=== PATIENT | male | born 1980 | race Caucasian/White ===

== ENCOUNTER 2017-04-20 08:57 | Emergency (ER) | payer OTHER ==
[2017-04-20 09:50] VITALS: BP 105/69
[2017-04-20 14:45] LABS: Hematocrit 47 % (42-52); Hemoglobin 14.9 g/dl (14.0-18.0); Mean Corpuscular HGB Conc 32 g/dl (31-36); Mean Corpuscular Hemoglobin 29 pg (27-31); Mean Corpuscular Volume 92 fL (80-94); Mean Platelet Volume 8 um3 (7.4-10.4); Red Blood Count 5.12 10^6/ul (4.0-5.4); Red Cell Distribution Width 15 % (10.5-15); White Blood Count 22.7 10^3/ul (3.5-10.8)
[2017-04-20 14:46] LABS: Add Diff/Slide Review? Slide Review Added; Comments Flag Yes
[2017-04-20 15:21] LABS: Immature Granulocytes 3 % (0-9); Neutrophil % 84 % (38-83); RBC Morphology Normal (Normal); Reactive Lymph % 4 % (0-6)
--- NOTE | 2017-04-20 16:45 | UC ---
Eva Wilkins Edward, scribed for Dorothy Rich DO on 04/20/17 at 1033 . General HPI - HPI Summary HPI Summary: 37 y/o male presents to [facility] c/o chills and subjective fever last night at 01:00 , slightly relieved by Ibuprofen at the time. Associated sx: mild testicle pain and swollen (but decreased from before), increased frequency of urination, weakness in arms and legs, mild pain in lower back and in suprapubic region, and mild GROSS. Patient also c/o non-pruritic bites on both arms. The abd pain is rated 3/10, described as an aching pain. Patient is currently on Levaquin 500 mg PO DAILY (Day 4) for epididymitis. Denies cough, sore throat, ear ache, problems breathing, N/V/D, dysuria, and change in urine color. PMHx polycythemia , left megauretur, and epididymitis. - History of Current Complaint Chief Complaint: UCGeneralIllness Stated Complaint: FEVER Hx Obtained From: Patient Onset/Duration: Sudden Onset, Lasting Hours - This morning 01:00, Still Present Timing: Constant Onset Severity: Moderate Current Severity: Moderate Associated Signs & Symptoms: Positive: Abdominal Pain - Mild, Back Pain - Mild, Diaphoresis, Fever - subjective, Headache - Mild. Negative: Cough, Chest Pain, Dizziness, Diarrhea, Dysuria, Nausea, Syncope, SOB, Vomiting - Allergy/Home Medications Allergies/Adverse Reactions: Allergies Allergy/AdvReac Type Severity Reaction Status Date / Time No Known Allergies Allergy Verified 04/20/17 09:30 Home Medications: Home Medications Ibuprofen TAB* [Advil TAB*] 2 tab PO PRN 04/20/17 [History] Levofloxacin TAB* [Levaquin 500 Tab*] 500 mg PO DAILY 04/20/17 [History Confirmed 04/20/17] PMH/Surg Hx/FS Hx/Imm Hx - Additional Past Medical History Additional PMH: Positive: polycythemia, epididymitis, L megauretur Previously Healthy: No GI/ History: Other Other GI/ History: Diverticulosis, epididdymitis Neurological History: Migraine - Surgical History Surgical History: Yes Surgery Procedure, Year, and Place: HPV REMOVAL - Family History Known Family History: Positive: Cardiac Disease - grandfather ([place]), Hypertension - Mom, Other - hypotension (father); thyroid disease (mother) - Social History Occupation: Employed Full-time Lives: Alone Alcohol Use: Weekly Substance Use Type: None Smoking Status (MU): Heavy Every Day Tobacco Smoker Type: Cigarettes Amount Used/How Often: 6-10 CIG/DAY Cessation Counseling: Patient Advised to Stop - Immunization History Most Recent Influenza Vaccination: 06/2016 Most Recent Tetanus Shot: 05/13/14 Most Recent Pneumonia Vaccination: never Review of Systems Constitutional: Fever - subjective, Chills Skin: Negative Eyes: Negative ENT: Negative - No sore throat, eaer ache Respiratory: Negative - No SOB, no cough Cardiovascular: Negative - No CP Gastrointestinal: Other - No vomiting, diarrhea, nausea Genitourinary: Frequency - mild increased frequency, Other - Progressively decreasing testicle pain and swelling. No dysuria, hematuria Motor: Weakness - generalized malaised Neurovascular: Negative Musculoskeletal: Arthralgia - Mild back pain, Myalgia Neurological: Headache - Mild Psychological: Negative All Other Systems Reviewed And Are Negative: Yes Physical Exam Triage Information Reviewed: Yes Appearance: Well-Appearing, No Pain Distress, Well-Nourished Vital Signs: Initial Vital Signs Temp 98.5 F 04/20/17 09:32 Pulse 86 04/20/17 09:32 Resp 18 04/20/17 09:32 BP 105/69 04/20/17 09:32 Pulse Ox 98 04/20/17 09:32 Vital Signs Reviewed: Yes Eyes: Positive: Conjunctiva Clear. Negative: Discharge ENT: Positive: Hearing grossly normal. Negative: Muffled/hoarse voice Neck: Positive: Supple, Nontender Respiratory: Positive: Lungs clear, Normal breath sounds, No respiratory distress, No accessory muscle use Cardiovascular: Positive: RRR, No Murmur Abdomen Description: Positive: Nontender. Negative: Soft, CVA Tenderness (R), CVA Tenderness (L), Distended, Guarding, McBurney's Point Tenderness, Peritoneal Signs Bowel Sounds: Positive: Present Musculoskeletal Exam: Normal Neurological: Positive: Alert, Muscle Tone Normal, Other: - aox4, strength, sensation and reflexes intact bl, cn 2-12 intact, no cerebellar signs Psychological: Positive: Age Appropriate Behavior Skin Exam: Other - Warm, dry, normal color Skin: Positive: rashes - Resolving papular rash bilateral arms, Other - Tender 1 cm enlargement over epididymis. Per patient, it is getting smaller. Course/Dx - Course Course Of Treatment: The patient has been encouraged to quit smoking. Pt has anatomical anomaly of megaureter. Has noted slight increase in frequency of urine and had trace blood in his ua(again pt has had blood in semen on a couple of occassions this past couple of weeks. Given that pt is currently on levaquin , uti/pyelo seemed unlikely. If sx present outside of the context of epydiddymitis, clinical picture and epidemiology could also suggest lyme. I ordered cbc, blood cultures and urine microscopy. Microscopy because, I wanted to know by the end of the day if pt had uti. Unfortunately, the nurse who collected the specimen sent it to the lab in the wrong tube. Wanted to obtain blood cx on this well appearing man because he was reporting f/severe chills/ achy while on 5 days of a strong abx. Unfortunately, the nurse did not use the correct tube when obtaining a specimen. So, inspite of orders blood cx were not obtained. The cbc was done and I got the result at the end of shift when I went to check the microscopy results. [id number] with left shift. microscopy not available. Called patient, informed him of results and recommended that he go to ED immediately for further evaluation. Pt voiced understanding an stated that he would go to the ED right away. - Differential Dx - Multi-Symptom Differential Diagnoses: Sepsis, Urinary Tract Infection, Other - lyme dz Provider Diagnoses: lyme disease Discharge - Discharge Plan Condition: Stable Disposition: HOME Prescriptions: DOXYcycline CAP(*) [DOXYcycline 100MG CAP(*)] 100 mg PO BID #42 cap Patient Education Materials: Lyme Disease (ED), Epididymitis (ED) Referrals: Belem Amato MD [Primary Care Provider] - 1 Day (Follow up with your pcp tomorrow. Follow up sooner at the ED if symptoms worsen or new ones develop. If you experience vomiting, severe ABD pain, back pain, or obvious blood in the urine, please go to the ER immediately.) Additional Instructions: DOXYCYCLINE: Doxycycline (Vibramycin, Doryx) is an antibiotic of the tetracycline family. This type of drug is useful for infections of the respiratory tract and genital tract, and is sometimes used for intestinal infections. Unlike most tetracyclines, doxycycline can be taken with food. It is longer acting, and (usually) less prone to side effects than regular tetracycline. Tetracycline antibiotics can stain immature teeth and SHOULD NOT BE TAKEN BY CHILDREN, NURSING MOTHERS, OR WOMEN. Tetracyclines can make you more prone to sunburn. Abdominal cramping, nausea, and diarrhea are occasional side effects. Women may experience vaginal yeast infections. Call the doctor at once if you develop hives, itching, shortness of breath , or lightheadedness. DISCUSSED, DOXY ALSO INCREASES YOUR RISK OF SUNBURN. COVER UP WHEN YOU GO OUTSIDE. ANYTIME YOU TAKE AN ANTIBIOTIC, IT IS IMPORTANT TO REPLENISH THE BODY'D SUPPLY OF "GOOD BACTERIA." YOU CAN GET GOOD BACTERIA FROM HIGH QUALITY CULTURED FOODS SUCH LOCAL YOGURT, SOUR KRAUT, NELL KYUNG, NATURALLY FERMENTED PICKLES AND PROBIOTIC DRINKS. YOU CAN ALSO GET GOOD BACTERIA FROM A PROBIOTIC SUPPLEMENT. If you experience vomiting, severe ABD pain, back pain, or obvious blood in the urine, please go to the ER immediately. The documentation as recorded by the scribeEva Edward accurately reflects the service I personally performed and the decisions made by me, Dorothy Rich DO.
--- NOTE | 2017-04-22 08:02 | ED ---
Progress - Progress Note Progress Note: URINE CX (-). Course/Dx - Course Course Of Treatment: The patient has been encouraged to quit smoking. Pt has anatomical anomaly of megaureter. Has noted slight increase in frequency of urine and had trace blood in his ua(again pt has had blood in semen on a couple of occassions this past couple of weeks. Given that pt is currently on levaquin , uti/pyelo seemed unlikely. If sx present outside of the context of epydiddymitis, clinical picture and epidemiology could also suggest lyme. I ordered cbc, blood cultures and urine microscopy. Microscopy because, I wanted to know by the end of the day if pt had uti. Unfortunately, the nurse who collected the specimen sent it to the lab in the wrong tube. Wanted to obtain blood cx on this well appearing man because he was reporting f/severe chills/ achy while on 5 days of a strong abx. Unfortunately, the nurse did not use the correct tube when obtaining a specimen. So, inspite of orders blood cx were not obtained. The cbc was done and I got the result at the end of shift when I went to check the microscopy results. [id number] with left shift. microscopy not available. Called patient, informed him of results and recommended that he go to ED immediately for further evaluation. Pt voiced understanding an stated that he would go to the ED right away. - Diagnoses Provider Diagnoses: Fever
== END 2017-04-20 12:00 | disposition home or self-care (01) ==
LOC: UCEAST 08:57
DX: A69.20 Lyme disease, unspecified (principal); D75.1 Secondary polycythemia; N45.1 Epididymitis; N28.82 Megaloureter; Z72.0 Tobacco use
CPT/HCPCS: 36415; 81003; 85025; 87086; 99212; G0463

== ENCOUNTER 2017-04-20 15:51 | Emergency (ER) | payer OTHER ==
[2017-04-20 17:05] LABS: Urine Bacteria Absent (Absent); Urine Bilirubin Negative (Negative); Urine Glucose 2+(150 mg/dL) (Negative); Urine Nitrite Negative (Negative)
[2017-04-20 17:35] LABS: Hematocrit 45 % (42-52); Hemoglobin 14.5 g/dl (14.0-18.0); Mean Corpuscular HGB Conc 32 g/dl (31-36); Mean Corpuscular Hemoglobin 29 pg (27-31); Mean Corpuscular Volume 91 fL (80-94); Mean Platelet Volume 7 um3 (7.4-10.4); Red Blood Count 4.92 10^6/ul (4.0-5.4); Red Cell Distribution Width 15 % (10.5-15); White Blood Count 17.8 10^3/ul (3.5-10.8)
[2017-04-20 17:45] LABS: Add Diff/Slide Review? Slide Review Added; Comments Flag Yes
[2017-04-20 17:51] LABS: Albumin 3.8 g/dL (3.2-5.2); C Reactive Protein 65.46 mg/L (< 5.00); EGFR African American 108.7 (>60); EGFR Non-African American 84.5 (>60); Globulin 2.6 g/dL (2-4); Total Bilirubin 0.5 mg/dL (0.2-1.0); Total Protein 6.4 g/dL (6.4-8.9)
[2017-04-20 17:52] LABS: Troponin I 0.01 ng/mL (<0.04)
--- NOTE | 2017-04-20 18:33 | RAD ---
Indication: Fever. Comparison is made with previous exam dated July 10, 2016. 2 views of the chest including dual energy PA views demonstrate no mediastinal shift. Heart is of normal size and configuration. Lung ugarte demonstrate no pleural fluid, pneumonia or pneumothorax. IMPRESSION: No active cardiopulmonary disease is noted.
[2017-04-20 18:58] VITALS: BP 111/78
--- NOTE | 2017-04-20 22:17 | ED ---
Saravanan Wilkins Alok, scribed for Markel Alcala MD on 04/20/17 at 1717 . HPI Febrile Illness - HPI Summary HPI Summary: 37M presents to the ED sent here from [facility] following an episode of fever/chills last night. [facility] reports elevated WBC. Pt states that one week ago experiencing left testicle pain radiating to the LLQ as well as mild testicle swelling during a trip in [facility]. Pt states his testicle pain worsened while standing and was better at rest. Pt was placed on antibiotics for the last 5 days which reduced his testicle pain and swelling. Pt currently notes generalized myaliga, extremity weakness, and slight testicle discomfort. Pt also notes increased urinary frequency and a new onset of small macular spots on his arms. Pt currently presents with a temperature of 99 F and pt states he took 2 ibuprofen last night at 0300. Pt denies dysuria or abd pain. PMHx includes h/o diverticulitis x2. - History of Current Complaint Chief Complaint: EDFever Time Seen by Provider: 04/20/17 16:43 Hx Obtained From: Patient Onset/Duration: Started Days Ago, Atraumatic, Still Present Timing: Intermittent, Lasting Hours Initial Severity: Moderate Current Severity: Moderate Pain Intensity: 3 Pain Scale Used: 0-10 Numeric Aggravating Factors: Other: - standing aggravates testicular pain Alleviating Factors: OTC Medicine - ibuprofen Associated Signs and Symptoms: Chills, Myalgia, Weakness - Additional Pertinent History Primary Care Physician: KOFFI - Allergy/Home Medications Allergies/Adverse Reactions: Allergies Allergy/AdvReac Type Severity Reaction Status Date / Time No Known Allergies Allergy Verified 04/20/17 15:54 PMH/Surg Hx/FS Hx/Imm Hx Endocrine/Hematology History: Reports: Hx Blood Disorders - INCREASED RBC: Denies: Hx Diabetes Cardiovascular History: Denies: Hx Hypertension, Hx Pacemaker/ICD GI History: Reports: Hx Diverticulosis Denies: Hx Cirrhosis History: Denies: Hx Dialysis, Hx Renal Disease Sensory History: Reports: Hx Contacts or Glasses Denies: Hx Hearing Aid Opthamlomology History: Reports: Hx Contacts or Glasses Neurological History: Reports: Hx Migraine Psychiatric History: Denies: Hx Panic Disorder - Surgical History Surgery Procedure, Year, and Place: HPV REMOVAL Infectious Disease History: No Infectious Disease History: Denies: Hx Hepatitis, Traveled Outside the [place] in Last 30 Days - Family History Known Family History: Positive: Cardiac Disease - grandfather ([place]), Other - hypotension (father); thyroid disease (mother) - Social History Occupation: Employed Full-time Alcohol Use: Weekly Substance Use Type: Reports: Marijuana Substance Use Comment - Amount & Last Used: occasionally Hx Tobacco Use: Yes Smoking Status (MU): Light Every Day Tobacco Smoker Type: Cigarettes Amount Used/How Often: 6-10 CIG/DAY Review of Systems Positive: Fever, Chills Negative: Abdominal Pain Genitourinary: Other - left testicular pain and swelling Positive: frequency - urinary. Negative: dysuria Positive: Myalgia Positive: Rash Positive: Weakness All Other Systems Reviewed And Are Negative: Yes Physical Exam Triage Information Reviewed: Yes Vital Signs On Initial Exam: Initial Vitals Temp Pulse Resp BP Pulse Ox 99 F 110 20 132/81 97 04/20/17 15:56 04/20/17 15:56 04/20/17 15:56 04/20/17 15:56 04/20/17 15:56 Vital Signs Reviewed: Yes Appearance: Positive: Well-Appearing, No Pain Distress Skin: Positive: Warm, Skin Color Reflects Adequate Perfusion, Dry, Other - Few small macular spots on arms Head/Face: Positive: Normal Head/Face Inspection Eyes: Positive: Normal ENT: Positive: Normal ENT inspection Neck: Positive: Supple, Nontender Respiratory/Lung Sounds: Positive: Clear to Auscultation, Breath Sounds Present Cardiovascular: Positive: RRR Abdomen Description: Positive: Nontender, Soft Bowel Sounds: Positive: Present Male Genital Exam: Positive: testicular tenderness (L) Musculoskeletal: Positive: Normal Neurological: Positive: Normal Psychiatric: Positive: Normal, Affect/Mood Appropriate - [place] Coma Scale Coma Scale Total: 15 Diagnostics - Vital Signs Vital Signs Temp Pulse Resp BP Pulse Ox 04/20/17 16:52 99.5 F 91 16 132/88 97 04/20/17 16:49 91 96 04/20/17 16:47 132/88 04/20/17 15:56 99 F 110 20 132/81 97 - Laboratory Lab Results: Lab Results 04/20/17 04/20/17 04/20/17 Range/Units 16:30 17:25 17:25 WBC 17.8 H (3.5-10.8) 10^3/ul RBC 4.92 (4.0-5.4) 10^6/ul Hgb 14.5 (14.0-18.0) g/dl Hct 45 (42-52) % MCV 91 (80-94) fL MCH 29 (27-31) pg MCHC 32 (31-36) g/dl RDW 15 (10.5-15) % Plt Count 232 (150-450) 10^3/ul MPV 7 L (7.4-10.4) um3 Neut % (Auto) 89.4 H (38-83) % Lymph % (Auto) 4.2 L (25-47) % [place] % (Auto) 5.8 (1-9) % Eos % (Auto) 0.1 (0-6) % Baso % (Auto) 0.5 (0-2) % Absolute Neuts (auto) 16.0 H (1.5-7.7) 10^3/ul Absolute Lymphs (auto) 0.7 L (1.0-4.8) 10^3/ul Absolute Monos (auto) 1.0 H (0-0.8) 10^3/ul Absolute Eos (auto) 0 (0-0.6) 10^3/ul Absolute Basos (auto) 0.1 (0-0.2) 10^3/ul Absolute Nucleated RBC 0.01 10^3/ul Nucleated RBC % 0.1 Sodium 136 (133-145) mmol/L Potassium 4.0 (3.5-5.0) mmol/L Chloride 105 (101-111) mmol/L Carbon Dioxide 26 (22-32) mmol/L Anion Gap 5 (2-11) mmol/L BUN 15 (6-24) mg/dL Creatinine 1.00 (0.67-1.17) mg/dL Est GFR ( Amer) 108.7 (>60) Est GFR (Non-Af Amer) 84.5 (>60) BUN/Creatinine Ratio 15.0 (8-20) Glucose 147 H (70-100) mg/dL Lactic Acid (0.5-2.0) mmol/L Calcium 9.0 (8.6-10.3) mg/dL Total Bilirubin 0.50 (0.2-1.0) mg/dL AST 17 (13-39) U/L ALT 22 (7-52) U/L Alkaline Phosphatase 73 (34-104) U/L Troponin I 0.01 (<0.04) ng/mL C-Reactive Protein 65.46 H (< 5.00) mg/L Total Protein 6.4 (6.4-8.9) g/dL Albumin 3.8 (3.2-5.2) g/dL Globulin 2.6 (2-4) g/dL Albumin/Globulin Ratio 1.5 (1-3) Urine Color Yellow Urine Appearance Clear Urine pH 6.0 (5-9) Ur Specific [place] 1.019 (1.010-1.030) Urine Protein Negative (Negative) Urine Ketones Negative (Negative) Urine Blood 1+ H (Negative) Urine Nitrate Negative (Negative) Urine Bilirubin Negative (Negative) Urine Urobilinogen Negative (Negative) Ur Leukocyte Esterase Trace H (Negative) Urine WBC (Auto) Trace(0-5/hpf) (Absent) Urine RBC (Auto) 2+(6-10/hpf) H (Absent) Urine Bacteria Absent (Absent) Urine Glucose 2+(150 mg/dl) H (Negative) 04/20/ Range/Units 17:25 WBC (3.5-10.8) 10^3/ul RBC (4.0-5.4) 10^6/ul Hgb (14.0-18.0) g/dl Hct (42-52) % MCV (80-94) fL MCH (27-31) pg MCHC (31-36) g/dl RDW (10.5-15) % Plt Count (150-450) 10^3/ul MPV (7.4-10.4) um3 Neut % (Auto) (38-83) % Lymph % (Auto) (25-47) % [place] % (Auto) (1-9) % Eos % (Auto) (0-6) % Baso % (Auto) (0-2) % Absolute Neuts (auto) (1.5-7.7) 10^3/ul Absolute Lymphs (auto) (1.0-4.8) 10^3/ul Absolute Monos (auto) (0-0.8) 10^3/ul Absolute Eos (auto) (0-0.6) 10^3/ul Absolute Basos (auto) (0-0.2) 10^3/ul Absolute Nucleated RBC 10^3/ul Nucleated RBC % Sodium (133-145) mmol/L Potassium (3.5-5.0) mmol/L Chloride (101-111) mmol/L Carbon Dioxide (22-32) mmol/L Anion Gap (2-11) mmol/L BUN (6-24) mg/dL Creatinine (0.67-1.17) mg/dL Est GFR ( Amer) (>60) Est GFR (Non-Af Amer) (>60) BUN/Creatinine Ratio (8-20) Glucose (70-100) mg/dL Lactic Acid 1.4 (0.5-2.0) mmol/L Calcium (8.6-10.3) mg/dL Total Bilirubin (0.2-1.0) mg/dL AST (13-39) U/L ALT (7-52) U/L Alkaline Phosphatase (34-104) U/L Troponin I (<0.04) ng/mL C-Reactive Protein (< 5.00) mg/L Total Protein (6.4-8.9) g/dL Albumin (3.2-5.2) g/dL Globulin (2-4) g/dL Albumin/Globulin Ratio (1-3) Urine Color Urine Appearance Urine pH (5-9) Ur Specific [place] (1.010-1.030) Urine Protein (Negative) Urine Ketones (Negative) Urine Blood (Negative) Urine Nitrate (Negative) Urine Bilirubin (Negative) Urine Urobilinogen (Negative) Ur Leukocyte Esterase (Negative) Urine WBC (Auto) (Absent) Urine RBC (Auto) (Absent) Urine Bacteria (Absent) Urine Glucose (Negative) Result Diagrams: 04/20/17 17:25 04/20/17 17:25 Lab Statement: Any lab studies that have been ordered have been reviewed, and results considered in the medical decision making process. - Radiology CXR Xray Interpretation: Positive (See Comments) - IMPRESSION: NO ACTIVE CARDIOPULMONARY DIESASE IS NOTED. Radiology Interpretation Completed By: Radiologist Course/Dx - Course Course Of Treatment: Mr. Padilla was sent in with the concern that his WBC's that were drawn this AM were elevated at 22.5. He went to [facility] because of diffuse myalgias and arthralgias. He is being treated with levaquin for epididymitis and has improved a lot but that hurts a bit more today also. His WBC's here were 17 and he is not toxic or febrile. He was given Doxy this AM which he has not taken and I encouraged him to do so. - Diagnoses Provider Diagnoses: Leukocytosis Discharge - Discharge Plan Condition: Stable Disposition: HOME Patient Education Materials: Fever in Adults (ED) Referrals: Belem Amato MD [Primary Care Provider] - Additional Instructions: Please take your medications and follow up with Dr. Amato in 2-3 days if symptoms do not improve. The documentation as recorded by the Saravanan amador Alok accurately reflects the service I personally performed and the decisions made by me, Markel Alcala MD.
[2017-04-23 01:28] LABS: B. miyamotoi PCR, B Negative (Negative); Babesia divergens/MO-1 Negative (Negative); Babesia ducani Negative (Negative); Ehrlichia ewingii/canis Negative (Negative)
== END 2017-04-20 18:58 | disposition home or self-care (01) ==
LOC: ED 15:51
DX: D72.829 Elevated white blood cell count, unspecified (principal); R53.1 Weakness; M79.1 Myalgia; F17.210 Nicotine dependence, cigarettes, uncomplicated
CPT/HCPCS: 36415; 71020; 80053; 81003; 81015; 83605; 84484; 85025; 86140; 86618; 87040; 87798; 99282

== ENCOUNTER 2017-06-10 08:07 | Emergency (ER) | payer OTHER ==
[2017-06-10 08:41] VITALS: BP 117/82
[2017-06-10] MEDS ORDERED: Ibuprofen TAB* 400 MG PO ONE (09:15)
--- NOTE | 2017-06-10 09:26 | UC ---
Complaint Male HPI - HPI Summary HPI Summary: Patient presents with a past medical history of polycythemia. He presents today with complaints of right flank pain that radiates around to the side of his abdomen. He states the pain began yesterday, and he noted decreased urinary flow. He states that he drank alot of water last night and and was up all niht urinating but feels like his urinary flow has decreased. He denies fever, chills , nausea or vomiting, hematuria, or abnormal penile discharge. - History of Current Complaint Chief Complaint: UCGU Stated Complaint: URINARY ISSUE Time Seen by Provider: 06/10/17 09:09 Hx Obtained From: Patient Onset/Duration: Gradual Onset Timing: Intermittent, Lasting Days Severity Initially: Moderate Severity Currently: Moderate Location: Flank Character: Sharp Aggravating Factor(s): Voiding, Straining Associated Signs And Symptoms: Positive: Back Pain - Allergies/Home Medications Allergies/Adverse Reactions: Allergies Allergy/AdvReac Type Severity Reaction Status Date / Time No Known Allergies Allergy Verified 06/10/17 08:41 Home Medications: Home Medications Cholecalciferol [Vitamin D] 1,000 units PO DAILY 06/10/17 [History Confirmed 02/19] PMH/Surg Hx/FS Hx/Imm Hx Previously Healthy: Yes GI/ History: Other - megaureter right. Other GI/ History: metaureter right - Surgical History Surgical History: None Surgery Procedure, Year, and Place: HPV REMOVAL - Family History Known Family History: Positive: Cardiac Disease - grandfather ([place]), Hypertension - Mom, Other - hypotension (father); thyroid disease (mother) - Social History Occupation: Employed Full-time Lives: Alone Alcohol Use: Weekly Substance Use Type: Marijuana Substance Use Comment - Amount & Last Used: occasionally Smoking Status (MU): Light Every Day Tobacco Smoker Type: Cigarettes Amount Used/How Often: 6-10 CIG/DAY - Immunization History Most Recent Influenza Vaccination: 06/2016 Most Recent Tetanus Shot: 05/13/14 Most Recent Pneumonia Vaccination: never Review of Systems Gastrointestinal: Abdominal Pain Genitourinary: Frequency, Urgency - decreased urinary flow All Other Systems Reviewed And Are Negative: Yes Physical Exam Triage Information Reviewed: Yes Appearance: Well-Appearing Vital Signs: Initial Vital Signs Temp 98.3 F 06/10/17 08:36 Pulse 91 06/10/17 08:36 Resp 16 06/10/17 08:36 BP 117/82 06/10/17 08:36 Pulse Ox 99 06/10/17 08:36 Vital Signs Reviewed: Yes Eye Exam: Normal ENT Exam: Normal Neck exam: Normal Respiratory Exam: Normal Cardiovascular Exam: Normal Abdomen Description: Positive: CVA Tenderness (L) Musculoskeletal Exam: Normal Skin Exam: Normal Complaint Male Course/Dx - Course Course Of Treatment: Patient presented with past medical history of polycythemia and right megaureter. He reports two days of worsening right flank pain, and decreased urinary flow. Ct scan was obtained finding were consistent with pyelonephritis, and less likely malignancy. The patient was given a copy of the report. He was rx cipro 500 mg bid x 10 days, and told to follow up in the er if his symtpoms worsen or persist. He was also referred to a urologist . - Differential Dx/Diagnosis Differential Diagnosis/HQI/PQRI: Pyelonephritis Provider Diagnoses: pyelonephritis Discharge - Discharge Plan Condition: Stable Disposition: HOME Prescriptions: Ciprofloxacin TAB* [Cipro 500 MG TAB*] 500 mg PO BID #20 tab Patient Education Materials: Urinary Tract Infection in Men (ED), Flank Pain ( ED) Referrals: Belem Amato MD [Primary Care Provider] - Vicente Kwong MD [Medical Doctor] - Additional Instructions: I recommend you follow up with a Urologist regarding the finding of megaureter, and recent kidney infection within two days if your symptoms persist.
--- NOTE | 2017-06-10 10:01 | RAD ---
INDICATION: Left flank abdominal pain. COMPARISON: Comparison is made with a prior CT of the abdomen and pelvis from June 15, 2016. TECHNIQUE: A CT scan of the abdomen and pelvis was performed without intravenous or oral contrast. Contiguous axial sections were obtained from the lung bases through the symphysis pubis. Images were reconstructed in the coronal and sagittal planes. FINDINGS: The lung bases are clear. No pleural effusion is present. The liver and spleen are normal in size. There is a small hypodense lesion present within the left hepatic lobe measuring up to 1.3 cm in size which is unchanged most consistent with a cyst. No calcified gallstones are seen. The pancreas appears to be within normal limits. The kidneys and adrenal glands appear normal in size. No renal, ureteral or bladder calculi are seen. There is mild dilatation of the left renal calyces and moderate distention of the left ureter which is unchanged from the prior study. There is mild stranding adjacent to the left ureter and mild thickening of the left ureteral wall. The aorta is normal in caliber without significant calcific plaque. No significant enlarged retroperitoneal lymph nodes are seen. The stomach, small and large bowel appear nondistended. The appendix is within normal limits. There is moderate descending and sigmoid diverticulosis without evidence for diverticulitis. There is a 1.8 x 0.8 cm calcific density present in the distal descending colon possibly representing a nondigested pill or vitamin versus a foreign body. Recommend clinical correlation. No free intraperitoneal air or fluid is seen. No significant focal osseous abnormality is seen. IMPRESSION: 1. DILATATION OF THE LEFT URETER, UNCHANGED SUGGESTIVE OF A PRIMARY MEGAURETER. IN ADDITION THERE IS THICKENING OF THE WALL OF THE URETER AND MILD STRANDING WHICH ARE NONSPECIFIC FINDINGS SUGGESTIVE OF PYELONEPHRITIS LESS LIKELY A MALIGNANT PROCESS. RECOMMEND CLINICAL CORRELATION. 2. CALCIFIC DENSITY IN THE DISTAL DESCENDING COLON MOST CONSISTENT WITH AN UNDIGESTED PILL OR VITAMIN OR ALTERNATIVELY A FOREIGN BODY. RECOMMEND CLINICAL CORRELATION.
--- NOTE | 2017-06-12 11:59 | UC ---
Progress - Progress Note Progress Note: e coli; on Cipro. Yves Allen MD
== END 2017-06-10 10:17 | disposition home or self-care (01) ==
LOC: UCEAST 08:07
DX: N12 Tubulo-interstitial nephritis, not specified as acute or chronic (principal); B96.20 Unspecified Escherichia coli [E. coli] as the cause of diseases classified elsewhere; F12.90 Cannabis use, unspecified, uncomplicated; F17.210 Nicotine dependence, cigarettes, uncomplicated
CPT/HCPCS: 74176; 81003; 87077; 87086; 87186; 99212; A9270-GY; G0463

== ENCOUNTER 2017-07-23 12:03 | Day surgery (SDC) | payer OTHER ==
--- NOTE | 2017-07-18 08:34 | HP ---
CC: Dr. Belem Amato; Dr. Nehemias Harris * DATE OF ADMISSION: 07/23/17 AGE: 37 years, male. ADMITTING DIAGNOSES: 1. Left hydronephrosis. 2. Left megaureter. PLANNED PROCEDURE: Left retrograde, left ureteroscopy, possible balloon dilatation, and left stent insertion. HISTORY OF PRESENT ILLNESS: Hamilton Padilla is a 37-year-old gentleman who's had a few episodes of urinary tract infections. He was diagnosed with left megaureter while in [facility] several years ago, and recently had another episode of flank pain and was noted to have a persistently dilated left ureter. In addition, on the CT scan of 06/10/17, there was noted to be thickening of the wall of the ureter and mild stranding which likely is related to inflammation. 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 PAST MEDICAL HISTORY: Significant for polycythemia and history of diverticulitis, history of restless leg syndrome, and history of migraines. PAST SURGICAL HISTORY: Unremarkable. MEDICATIONS ON ADMISSION: 1. Truvada 200-300 one tablet oral daily for HIV prophylaxis. 2. Cialis prn. 3. Cholecalciferol. ALLERGIES: No known drug allergies. PHYSICAL EXAMINATION GENERAL: Reveals a pleasant, healthy-appearing, young gentleman. VITAL SIGNS: Blood pressure is 110/68, pulse 77 per minute regular, temperature 97.7, oxygen saturation 98%. LUNGS: Clear bilaterally. CARDIOVASCULAR: Regular rate and rhythm. S1 and S2. ABDOMEN: Soft without masses. 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 PLANNED PROCEDURE: Left retrograde, left uteroscopy, possible balloon dilatation, and left stent insertion. [id number]/[facility] #: [id number] [facility]
[~2017-07-23 12:03] MED LIST: Buffered Lidocaine 0.9% SYRIN* 5 ML/SYR SYRINGE INTRADERM ONE; Sodium Citrate/Citric Acid* 15 ML UDC PO ONE
[2017-07-23] MEDS ORDERED: Buffered Lidocaine 0.9% SYRIN* 5 ML/SYR SYRINGE ONE (12:27)
[2017-07-23] MEDS ORDERED: Sodium Citrate/Citric Acid* 15 ML UDC ONE (12:27)
[2017-07-23] MEDS ORDERED: cefTRIAXone(*) 2 GM ADDV.VIAL IVPB ONE (12:27)
[2017-07-23] MEDS ORDERED: Iohexol 180 (CONTRAST) 10 ML SDV IV ONE ×3 (12:48→13:38)
[2017-07-23] MEDS ORDERED: fentaNYL* 50 MCG/ML 2 ML VIAL (100 MCG VIAL) ONE ×2 (13:01→14:31)
[2017-07-23] MEDS ORDERED: Lidocaine 2% PF * 5 ML VIAL ONE (13:02)
[2017-07-23] MEDS ORDERED: Propofol* 10 MG/ML 20 ML BTL IV PUSH ONE (13:02)
[2017-07-23] MEDS ORDERED: Midazolam* 1 MG/ML 2 ML VIAL (2 MG) ONE (13:02)
[2017-07-23] MEDS ORDERED: fentaNYL* 50 MCG/ML 2 ML VIAL (100 MCG VIAL) IV PRN (14:01)
[2017-07-23] MEDS ORDERED: Ondansetron INJ* 2 MG/ML VIAL IV PRN (14:01)
[2017-07-23] MEDS ORDERED: oxyCODONE/Acetamin 5/325 MG* TAB ONE (14:31)
[2017-07-23] MEDS ORDERED: Tamsulosin CAP* 0.4 MG ONE (14:32)
[2017-07-23 16:00] VITALS: BP 115/74
--- NOTE | 2017-07-23 16:10 | RAD ---
CPT II Codes: 6045F Indication: Left stent insertion. Fluoroscopic services provided for left ureteral stent placement. Left hydronephrosis is noted. 10 spot images demonstrates placement of a left ureteral stent. Approximately 117.8 seconds of fluoroscopy time was used. IMPRESSION: Left ureteral stent placement.
--- NOTE | 2017-07-24 03:12 | OP ---
CC: Belem Amato MD * DATE OF OPERATION: 07/23/17 - [facility] DATE OF : 82 SURGEON: Chad Dubon MD ANESTHESIOLOGIST: Dr. Rodriguez. ANESTHESIA: General. PRE-OP DIAGNOSES: 1. Left hydronephrosis and hydroureter. 2. Congenital left ureterovesical junction obstruction. POST-OP DIAGNOSES: 1. Left hydronephrosis and hydroureter. 2. Congenital left ureterovesical junction obstruction. OPERATIVE PROCEDURE: Cystoscopy, left retrograde pyelogram, left ureteroscopy, left ureteral balloon dilatation, and left stent insertion. INDICATIONS: Hamilton Padilla is a 37-year-old gentleman who has a longstanding history of recurrent infections and had been diagnosed with megaureter on the left side many years ago. COMPLICATIONS: None. STENT USED: A 7-Latvian 28-cm silicone stent, left ureter. OPERATIVE FINDINGS: 1. Normal-appearing bladder. 2. Left hydronephrosis and left hydroureter all the way down to urinary bladder with narrowing at the ureterovesical junction. POSTOPERATIVE CONDITION: Stable. DESCRIPTION OF PROCEDURE: After induction of general anesthesia, the patient was placed in dorsal lithotomy position. Sequential compression devices were in place and functioning. Initial cystoscopy revealed a normal-appearing urethra and a normal-appearing bladder. The right and left ureteral orifices were normal in position and configuration. A guidewire was introduced into the left ureter. Retrograde pyelogram revealed left hydronephrosis with a markedly dilated ureter all the way down to the urinary bladder. A 6-Latvian semi-rigid ureteroscope was introduced and advanced under direct vision. There was mild narrowing at the ureterovesical junction and the remainder of the ureter was significantly dilated with no evidence of any calculi or lesions within the ureter. Once the ureteroscopy was completed, balloon dilatation of the last 5- 6 cm of the distal left ureter were successfully carried out. Next, a 7-Latvian 28-cm silicone stent was introduced and positioned under fluoroscopy with good proximal and distal positioning obtained. The patient tolerated the procedure satisfactorily and was transferred back to the recovery area in stable condition. [id number]/[facility] #: [id number] MTDD
== END 2017-07-23 16:15 | disposition home or self-care (01) ==
LOC: OR 12:03
PROVIDERS: ATTEND Urology
DX: N13.1 Hydronephrosis with ureteral stricture, not elsewhere classified (principal); D75.1 Secondary polycythemia; F17.200 Nicotine dependence, unspecified, uncomplicated; Z68.32 Body mass index [BMI] 32.0-32.9, adult; Z79.899 Other long term (current) drug therapy; G25.81 Restless legs syndrome; G43.909 Migraine, unspecified, not intractable, without status migrainosus
CPT/HCPCS: 74420; A9270-GY; C1876; J0696; J1580; J2250; J2704; J3010

== ENCOUNTER 2019-09-07 11:27 | Emergency (ER) | payer OTHER ==
[2019-09-07 12:16] VITALS: BP 130/84
[2019-09-07] MEDS ORDERED: cefTRIAXone VIAL(*) 1,000 MG VIAL IM ONE (14:07)
[2019-09-07] MEDS ORDERED: Lidocaine 1% MPF ** 5 ML VIAL IM ONE (14:07)
--- NOTE | 2019-09-07 22:11 | UC ---
Upper Extremity HPI - HPI Summary HPI Summary: Patient is a 39yo male presenting with c/o "possible infected L elbow x1 day. Patient states that he has a dry patch of skin on his L elbow 1 week ago that cracked and bled. Patient states he did not think anything of it and the crack healed. States that yesterday the elbow began to become red, painful, and swollen and has gradually worsened since yesterday. Notes pain with flexion and extension of elbow. Denies injury or trauma. Denies drainage. Denies fever and chills. Denies n/v. Notes applying ice and taking ibuprofen without relief. Denies anything like this in the past. Denies h/o of MRSA infections. - History of Current Complaint Chief Complaint: Nan Stated Complaint: THINKS ELBOW IS INFECTED Hx Obtained From: Patient Onset/Duration: Gradual Onset, Lasting Days Severity Currently: Moderate Pain Intensity: 0 - Allergies/Home Medications Allergies/Adverse Reactions: Allergies Allergy/AdvReac Type Severity Reaction Status Date / Time melatonin Allergy See Comment Verified 11/08/18 07:21 PMH/Surg Hx/FS Hx/Imm Hx Previously Healthy: Yes GI/ History: Diverticulitis - Surgical History Surgical History: Yes Surgery Procedure, Year, and Place: HPV REMOVAL 11/2016 - Family History Known Family History: Positive: Cardiac Disease - grandfather ([place]), Hypertension - Mom, Other - hypotension (father); thyroid disease (mother) - Social History Alcohol Use: Occasionally Substance Use Type: None Substance Use Comment - Amount & Last Used: occasionally Smoking Status (MU): Light Every Day Tobacco Smoker Type: Cigarettes Amount Used/How Often: 5-8sig/day - Immunization History Most Recent Influenza Vaccination: 06/2016 Most Recent Tetanus Shot: 05/13/14 Most Recent Pneumonia Vaccination: never Review of Systems All Other Systems Reviewed And Are Negative: Yes Constitutional: Positive: Negative. Negative: Fever, Chills Skin: Positive: Other - erythema and warmth over L elbow Cardiovascular: Positive: Negative Gastrointestinal: Positive: Negative. Negative: Vomiting, Nausea Neurovascular: Positive: Negative. Negative: Decreased Sensation Musculoskeletal: Positive: Arthralgia - L elbow, Decreased ROM - L elbow extension d/t pain, Edema - L elbow Neurological: Negative: Paresthesia, Numbness Physical Exam Triage Information Reviewed: Yes Appearance: Well-Appearing, No Pain Distress, Well-Nourished Vital Signs: Initial Vital Signs Temp 98.5 F 09/07/19 12:11 Pulse 82 09/07/19 12:11 Resp 16 09/07/19 12:11 BP 130/84 09/07/19 12:11 Pulse Ox 99 09/07/19 12:11 Vital Signs Reviewed: Yes Eyes: Positive: Conjunctiva Clear ENT: Positive: Hearing grossly normal Neck: Positive: Supple Respiratory Exam: Normal Respiratory: Positive: Lungs clear, Normal breath sounds, No respiratory distress Cardiovascular Exam: Normal Cardiovascular: Positive: RRR, Pulses Normal - strong radial pulses, Brisk Capillary Refill. Negative: Tachycardia Musculoskeletal: Positive: Strength Intact, ROM Limited @ - L elbow extension and flexion d/t pain, Edema @ - L elbow, Other: - L elbow fluctuant with overlying erythema and warmth Neurological Exam: Other - sensation grossly intact Neurological: Positive: Alert Psychological: Positive: Normal Response To Family Skin: Positive: Other - scabbed, nonbleeding, nondraining lesion noted over L elbow Upper Extremity Course/Dx - Course Course Of Treatment: Discussed concern for cellulitis vs infective bursitis with patient. I discussed the patient with TIAN Manjarrez in ortho who spoke with Dr. Arreola about the patient. The patient received a shot of rocephin while waiting for a call back. Dr. Arreola agreed to see the patient in his office immediately after he leaves the urgent care. I prescribed patient with Keflex and instructed to follow up first with Dr. Arreola. Patient agreed to go immediately for further evaluation. Patient VS normal and in no pain distress upon departure. - Differential Dx/Diagnosis Differential Diagnosis/HQI/PQRI: Septic Arthritis, Other - infective bursitis Provider Diagnosis: Cellulitis of left elbow Discharge ED - Sign-Out/Discharge Documenting (check all that apply): Patient Departure All imaging exams completed and their final reports reviewed: No Studies - Discharge Plan Condition: Stable Disposition: HOME Prescriptions: Cephalexin CAP* [Keflex CAP*] 500 mg PO TID #30 cap Referrals: Ty Arreola MD [Medical Doctor] - As Soon As Possible Additional Instructions: You received a shot of rocephin here and provided with a prescription for Keflex. It is recommended that you go straight to Dr. Arreola's office from here for further evaluation. - Billing Disposition and Condition Condition: STABLE Disposition: Home
== END 2019-09-07 14:35 | disposition home or self-care (01) ==
LOC: UCEAST 11:27
DX: L03.114 Cellulitis of left upper limb (principal); F17.210 Nicotine dependence, cigarettes, uncomplicated; Z88.8 Allergy status to other drugs, medicaments and biological substances
CPT/HCPCS: 96372; 99212; G0463; J0696

== ENCOUNTER 2021-03-03 07:38 | Inpatient (IN) ==
[2021-03-03 08:57] LABS: Hematocrit 46 % (42-52); Hemoglobin 15.5 g/dL (14.0-18.0); Mean Corpuscular HGB Conc 34 g/dL (31-36); Mean Corpuscular Hemoglobin 32 pg (27-31); Mean Corpuscular Volume 93 fL (80-94); Mean Platelet Volume 7.3 fL (7.4-10.4); Platelet Count 211 10^3/uL (150-450); Red Blood Count 4.88 10^6 /uL (4.18-5.48); Red Cell Distribution Width 16 % (10-15); White Blood Count 15.3 10^3/uL (3.5-10.8)
[2021-03-03 08:58] LABS: ABS Lymphocytes 1.9 10^3/ul (1.0-4.8); ABS Monocytes 1.8 10^3/ul (0-0.8); ABS Neutrophils 11.6 10^3/ul (1.5-7.7); Eosinophil % 0.1 %; Lymphocyte % 12.4 %
[2021-03-03 08:59] LABS: Urine Appearance Clear; Urine Bilirubin Negative (Negative); Urine Blood 1+ (Negative); Urine Color Yellow; Urine Glucose Negative (Negative); Urine Ketones Negative (Negative); Urine Nitrite Negative (Negative); Urine Protein Negative (Negative); Urine Urobilinogen Negative (Negative)
[2021-03-03 09:11] LABS: Urine Bacteria Absent (Absent); Urine Red Blood Cell 2+(6-10/hpf) (Absent); Urine White Blood Cell 1+(6-10/hpf) (Absent)
[2021-03-03 09:12] LABS: Albumin 3.8 g/dL (3.2-5.2); Albumin/Globulin Ratio 1.5 (1-3); C Reactive Protein 102.02 mg/L (<8.01); EGFR African American 111.7 (>60); EGFR Non-African American 92.3 (>60); Globulin 2.5 g/dL (2-4); Potassium 4.1 mmol/L (3.5-5.0); Total Bilirubin 0.8 mg/dL (0.2-1.0); Total Protein 6.3 g/dL (6.4-8.9)
[2021-03-03] MEDS ORDERED: Iohexol 300 (CONTRAST) 10 ML SDV IV ONE (10:05)
[2021-03-03] MEDS ORDERED: Piperacillin/Tazobac ADVAN 3.375 GM in NS 0.9% 100 ml BAG 100 ML IV ONE ×2 (10:48→17:15)
[2021-03-03] MEDS: Morphine 4 MG/ML VIAL (1 ml) IV ONE ×2 (12:43→12:50)
[2021-03-03] MEDS ORDERED: Zosyn per Pharmacy NOTE FOLLOW UP SCH (13:00)
[2021-03-03] MEDS ORDERED: oxyCODONE/Acetamin 5/325 mg TAB PO PRN (16:09)
[2021-03-03] MEDS: ZOSYN 3.375 GM Q8H per EXTENDED INFUSION IV SCH (19:37)
[2021-03-03] MEDS: NS 0.9% 1000 ml BAG 1,000 ML IV SCH (19:37)
[2021-03-03] MEDS: Ondansetron 4 mg VIAL 2 MG/ML 2 ml VIAL IV PRN (19:43)
[2021-03-04] MEDS: ZOSYN 3.375 GM Q8H per EXTENDED INFUSION IV SCH ×3 (02:05→18:14)
[2021-03-04] MEDS: Ondansetron 4 mg VIAL 2 MG/ML 2 ml VIAL IV PRN (02:16)
[2021-03-04] MEDS: NS 0.9% 1000 ml BAG 1,000 ML IV SCH ×3 (02:16→18:13)
[2021-03-04 04:56] LABS: ABS Lymphocytes 1.4 10^3/ul (1.0-4.8); ABS Monocytes 1.5 10^3/ul (0-0.8); Eosinophil % 0.4 %; Hematocrit 42 % (42-52); Hemoglobin 14.2 g/dL (14.0-18.0); Lymphocyte % 10.6 %; Mean Corpuscular HGB Conc 34 g/dL (31-36); Mean Corpuscular Hemoglobin 32 pg (27-31); Mean Corpuscular Volume 93 fL (80-94); Mean Platelet Volume 7.2 fL (7.4-10.4); Platelet Count 195 10^3/uL (150-450); Red Blood Count 4.47 10^6 /uL (4.18-5.48); Red Cell Distribution Width 16 % (10-15)
[2021-03-05] MEDS: ZOSYN 3.375 GM Q8H per EXTENDED INFUSION IV SCH ×2 (01:57→09:58)
[2021-03-05 07:40] VITALS: BP 124/79
[2021-03-05 08:58] LABS: Hematocrit 43 % (42-52); Hemoglobin 14.4 g/dL (14.0-18.0); Mean Corpuscular HGB Conc 34 g/dL (31-36); Mean Corpuscular Hemoglobin 32 pg (27-31); Mean Corpuscular Volume 94 fL (80-94); Mean Platelet Volume 7.2 fL (7.4-10.4); Platelet Count 207 10^3/uL (150-450); Red Blood Count 4.51 10^6 /uL (4.18-5.48); Red Cell Distribution Width 16 % (10-15); White Blood Count 7.1 10^3/uL (3.5-10.8)
== END 2021-03-05 11:05 | disposition home or self-care (01) | DRG 392 ==
LOC: ED 07:38 → SSU 20:18
PROVIDERS: ADMIT Surgery; ATTEND Surgery

== ENCOUNTER 2021-07-23 05:51 | Inpatient (IN) ==
[2021-07-23] MEDS ORDERED: Lactated Ringers 1000 ml BAG 1,000 ML IV SCH (06:00)
[2021-07-23] MEDS ORDERED: Buffered Lidocaine 1% SYRIN 1 ml INTRADERM ONE ×2 (06:00→06:34)
[2021-07-23] MEDS ORDERED: Heparin 5000 UNITS/ML 1 mL VIAL ONE (06:33)
[2021-07-23] MEDS ORDERED: Iohexol 180 (CONTRAST) 10 ML SDV IV ONE (06:45)
[2021-07-23 06:47] LABS: Hematocrit 50 % (42-52); Hemoglobin 17.4 g/dL (14.0-18.0)
[2021-07-23] MEDS ORDERED: Ondansetron 4 mg VIAL 2 MG/ML 2 ml VIAL ONE (06:59)
[2021-07-23] MEDS ORDERED: Lidocaine 2% PF 5 ML VIAL ONE (06:59)
[2021-07-23] MEDS ORDERED: Dexamethasone IV 4 MG/ML VIAL 1 ml VIAL ONE (06:59)
[2021-07-23] MEDS ORDERED: Propofol 10 MG/ML 20 ML BTL ONE (06:59)
[2021-07-23] MEDS ORDERED: Ertapenem 1 GM in NS 0.9% 50 ML IVPB ONE (07:00)
[2021-07-23] MEDS ORDERED: Rocuronium 50 mg VIAL 10 mg/ml 5 ml VIAL (50 mg) ONE ×4 (07:00→12:20)
[2021-07-23] MEDS ORDERED: fentaNYL 250 mcg/5 ml 50 MCG/ML 5 ml VIAL (250 MCG) ONE ×2 (07:00→09:30)
[2021-07-23] MEDS ORDERED: Midazolam 2 mg/2 ml VIAL 1 mg/ml 2 ml VIAL (2 mg) ONE (07:00)
[2021-07-23] MEDS ORDERED: Bupivacaine 0.5% SDV PF 30ML VIAL ONE (07:24)
[2021-07-23] MEDS ORDERED: Lidocaine 1% w EPI 1:200,000 SDV 30 ML VIAL ONE (07:25)
[2021-07-23] MEDS ORDERED: DiMENhydriNATE IV 50 mg/ml 1 ml VIAL IV PUSH PRN (07:45)
[2021-07-23] MEDS ORDERED: diPHENhydraMINE IV 50 MG/ML 1 ml VIAL (BENADRYL) IV PRN (07:45)
[2021-07-23] MEDS ORDERED: Naloxone 0.4 mg VIAL 0.4 mg/ml 1 ml VIAL IV PRN (07:45)
[2021-07-23] MEDS ORDERED: HYDROmorphone 1 MG/1 ML SYRINGE IV PRN (07:45)
[2021-07-23] MEDS ORDERED: Sevoflurane BOTTLE ONE (09:26)
[2021-07-23] MEDS ORDERED: HYDROmorphone 1 MG/1 ML SYRINGE ONE (12:28)
[2021-07-23] MEDS ORDERED: Acetaminophen IV 1 GM/100ML 100 ML IV ONE (13:21)
[2021-07-23] MEDS ORDERED: HYDROmorphone 1 MG/1 ML SYRINGE IV SLOW PU PRN (14:48)
[2021-07-23] MEDS: Ondansetron 4 mg VIAL 2 MG/ML 2 ml VIAL IV PRN ×2 (15:15→21:38)
[2021-07-23] MEDS: Lactated Ringers 1000 ml BAG 1,000 ML IV SCH ×2 (15:16→23:00)
[2021-07-23] MEDS: HYDROmorphone 0.5 MG/0.5 ML SYRINGE IV SLOW PU PRN (19:56)
[2021-07-23] MEDS: Heparin 5000 UNITS/ML 1 mL VIAL SUBCUT SCH (21:38)
[2021-07-24] MEDS: HYDROmorphone 0.5 MG/0.5 ML SYRINGE IV SLOW PU PRN ×2 (02:42→13:06)
[2021-07-24] MEDS: Heparin 5000 UNITS/ML 1 mL VIAL SUBCUT SCH ×3 (06:14→22:01)
[2021-07-24] MEDS: Lactated Ringers 1000 ml BAG 1,000 ML IV SCH ×3 (06:22→22:01)
[2021-07-24 06:49] LABS: ABS Lymphocytes 1.4 10^3/ul (1.0-4.8); ABS Monocytes 1.1 10^3/ul (0-0.8); ABS Neutrophils 7.5 10^3/ul (1.5-7.7); Hematocrit 43 % (42-52); Hemoglobin 14.4 g/dL (14.0-18.0); Lymphocyte % 13.6 %; Mean Corpuscular HGB Conc 34 g/dL (31-36); Mean Corpuscular Hemoglobin 31 pg (27-31); Mean Corpuscular Volume 92 fL (80-94); Mean Platelet Volume 7.1 fL (7.4-10.4); Platelet Count 186 10^3/uL (150-450); Red Blood Count 4.66 10^6 /uL (4.18-5.48); Red Cell Distribution Width 17 % (10-15); White Blood Count 9.9 10^3/uL (3.5-10.8)
[2021-07-24 07:09] LABS: Calcium 8.5 mg/dL (8.6-10.3); Magnesium 1.9 mg/dL (1.9-2.7); Phosphorus 2.9 mg/dL (2.5-5.0); Potassium 3.9 mmol/L (3.5-5.0)
[2021-07-25] MEDS: Lactated Ringers 1000 ml BAG 1,000 ML IV SCH ×4 (04:34→21:48)
[2021-07-25] MEDS: Heparin 5000 UNITS/ML 1 mL VIAL SUBCUT SCH ×3 (06:20→21:48)
[2021-07-25] MEDS ORDERED: Flu vaccine *QUAD* 2021-22* 0.5 ML SYRINGE IM ONE (09:00)
[2021-07-26] MEDS: Lactated Ringers 1000 ml BAG 1,000 ML IV SCH (04:34)
[2021-07-26] MEDS: Heparin 5000 UNITS/ML 1 mL VIAL SUBCUT SCH (05:32)
[2021-07-26] MEDS ORDERED: Flu vaccine *QUAD* 2021-22* 0.5 ML SYRINGE IM ONE (09:00)
[2021-07-26 11:51] VITALS: BP 121/80
== END 2021-07-26 16:15 | disposition home or self-care (01) | DRG 330 ==
LOC: AA 05:51 → SSU 14:45
PROVIDERS: ADMIT Surgery; ATTEND Surgery